=== PATIENT | male | born 1980 | race Hispanic/Latino ===

== ENCOUNTER 2018-12-14 09:31 | Inpatient (IN) | payer OTHER, MEDICARE ==
[2018-12-14] MEDS ORDERED: MORPHINE 4 MG/1 ML INJ IV ONE ×2 (09:46→10:12)
[2018-12-14] MEDS ORDERED: SODIUM CHLORIDE 0.9% 500 ML 500 ML IV ONE (09:46)
--- NOTE | 2018-12-14 09:49 | Emergency Department Report ---
ED Chest Pain HPI - General Chief Complaint: Chest Pain Stated Complaint: POSS STEMI Time Seen by Provider: 12/14/18 09:43 Source: patient, family, EMS (verbal report received from EMS.ems notes not available at time of chart dictation), RN notes reviewed, old records reviewed Mode of arrival: Stretcher Limitations: Physical Limitation - History of Present Illness Initial Comments: This is a 38-year-old gentleman. This patient is not known to this provider previously. His primary director of clinical education is , with [place] The patient is brought to the hospital by emergency medical services as a possible code STEMI. The patient presents with a complaint of burning central chest pain, diaphoresis, malaise and fatigue. He is given aspirin by EMS in the field. Nitroglycerin is held given concern for possible inferior wall STEMI. As per verbal report from EMS, patient hypotensive in the field, blood pressure in the 80s, and appeared to be quite pale. A prehospital EKG was transmitted. I reviewed the prehospital EKG, and while it was abnormal, it does not meet criteria for ST elevation myocardial infarction. It was transmitted to our cleaner greaser, Dr. Pallavi Geller, who indicated that the EKG did not meet STEMI criteria and did not recommend emergent catheterization at the time.. Additional EKGs were also transmitted to the cleaner greaser, at 9:36 in the morning, regular leads, and then right-sided leads. These EKGs were evaluated by our cleaner greaser, who indicated that the patient did not meet criteria for emergent catheterization. I agreed with his interpretation, however, was very suspicious for acute coronary syndrome. These initial EKGs did not be criteria for administration of thrombolytic medications. He recommended emergent CT scan of the chest to exclude alternative diagnoses. I requested an emergent cardiology consult given very elevated suspicion for acute coronary syndrome. Additional EKG transmitted at 10:04 AM, showing progression of concerning inferior wall infarction, however, did not meet strict criteria for thrombolysis, again, additional EKG sent at 10:13 AM, even more suspicious. CT scan of the chest was interpreted as negative for acute disease, and at 10:42 AM, patient's EKG morphology was found to be definitively consistent with ST elevation myocardial infarction, at which point in time he was emergently taken to the catheterization lab. Heparin bolus was administered by nursing team in the emergency room at my verbal direction, aspirin was given by EMS in the field. Morphine was given for pain control, and nitroglycerin was held given concern for inferior wall myocardial infarction. MD Complaint: chest pain -: Gradual, minutes(s) Onset: during rest Pain Location: left chest Quality: other (burning) Consistency: constant Improves With: rest Worsens With: nothing re: diaphoresis Treatments Prior to Arrival: aspirin Aspirin use within the Past 7 Days: (1) Yes - Related Data On Oral Contraceptives: No Home Medications Medication Instructions Recorded Confirmed Last Taken Amlodipine Besylate [Norvasc] 5 mg PO QDAY 12/14/18 12/14/18 12/13/18 Omeprazole 40 mg PO QDAY 12/14/18 12/14/18 12/13/18 Oxycodone HCl [Oxaydo] 7.5 mg PO Q6H 12/14/18 12/14/18 12/13/18 Testosterone Cypionate [Testone 200 mg IM QMONTH 12/14/18 12/14/18 11/24/18 Cik] clonazePAM [Klonopin] 1 mg PO QDAY 12/14/18 12/14/18 12/13/18 predniSONE [Deltasone] 10 mg PO QDAY 12/14/18 12/14/18 12/13/18 Allergies Allergy/AdvReac Type Severity Reaction Status Date / Time hydromorphone [From Dilaudid] Allergy Rash Verified 12/14/18 13:59 Heart Score - HEART Score History: Highly suspicious EKG: Significant ST-depression Age: < 45 Risk factors: 1-2 risk factors Troponin: < normal limit HEART Score: 5 - Critical Actions Critical Actions: 4-6 pts:12-16.6% risk of adverse cardiac event. Should be admitted ED Review of Systems ROS: Stated complaint: POSS STEMI Other details as noted in HPI Constitutional: malaise, weakness. denies: fever Eyes: denies: eye discharge ENT: denies: hearing loss Respiratory: denies: wheezing Cardiovascular: chest pain Gastrointestinal: vomiting Musculoskeletal: denies: back pain Skin: denies: lesions Neurological: weakness Psychiatric: anxiety Hematological/Lymphatic: denies: easy bleeding ED Past Medical Hx - Medications Home Medications: Home Medications Medication Instructions Recorded Confirmed Last Taken Type Amlodipine Besylate [Norvasc] 5 mg PO QDAY 12/14/18 12/14/1819 History Omeprazole 40 mg PO QDAY 12/14/18 12/14/18 12/13/18 History Oxycodone HCl [Oxaydo] 7.5 mg PO Q6H 12/14/18 12/14/18 12/13/18 History Testosterone Cypionate [Testone 200 mg IM QMONTH 12/14/18 12/14/18 11/24/18 History Cik] clonazePAM [Klonopin] 1 mg PO QDAY 12/14/18 12/14/18 12/13/18 History predniSONE [Deltasone] 10 mg PO QDAY 12/14/18 12/14/18 12/13/18 History ED Physical Exam - General Limitations: Physical Limitation General appearance: alert, anxious, in distress, obese - Head Head exam: Present: atraumatic, normocephalic - Eye Eye exam: Present: normal appearance, EOMI. Absent: nystagmus - ENT ENT exam: Present: normal exam, normal orophraynx, mucous membranes moist, normal external ear exam - Neck Neck exam: Present: normal inspection, full ROM. Absent: tenderness, meningismus - Respiratory Respiratory exam: Present: normal lung sounds bilaterally. Absent: respiratory distress - Cardiovascular Cardiovascular Exam: Present: regular rate, normal rhythm, normal heart sounds. Absent: bradycardia, tachycardia, irregular rhythm, systolic murmur, diastolic murmur, rubs, gallop - GI/Abdominal GI/Abdominal exam: Present: soft. Absent: distended, tenderness, guarding, rebound, rigid, pulsatile mass - Rectal Rectal exam: Present: deferred - Extremities Exam Extremities exam: Present: normal inspection, full ROM, other (2+ pulses noted in the bilateral upper, lower extremities. Compartments soft. No long bony tenderness. The pelvis is stable.). Absent: pedal edema, calf tenderness - Back Exam Back exam: Present: normal inspection. Absent: tenderness, CVA tenderness (R), paraspinal tenderness, vertebral tenderness - Neurological Exam Neurological exam: Present: alert, other (Extraocular movements intact. Tongue midline. No facial droop. Facial sensation intact to light touch in the V1, V2, V3 distribution bilaterally. 5 and 5 strength in 4 extremities.. Sensation is intact to light touch in 4 extremities.) - Psychiatric Psychiatric exam: Present: anxious - Skin Skin exam: Present: warm, dry, intact, normal color. Absent: rash ANGI score - Angi Score Age > 65: (0) No Aspirin use within the Past 7 Days: (0) No 3 or more CAD Risk Factors: (0) No 2 or more Angina events in past 24 hrs: (1) Yes Known CAD with more than 50% Stenosis: (0) No Elevated Cardiac Markers: (0) No ST Deviation Greater than 0.5mm: (1) Yes ANGI Score: 2 ED Medical Decision Making - Lab Data Result diagrams: 12/14/18 09:38 12/14/18 09:38 Vital Signs 12/14/18 12/14/18 12/14/18 09:35 09:42 09:45 Temperature 97.5 F L Pulse Rate 65 63 54 L Respiratory 15 14 10 L Rate Blood Pressure 126/86 136/88 O2 Sat by Pulse 99 100 100 Oximetry 12/14/18 09:50 Temperature Pulse Rate Respiratory 14 Rate Blood Pressure O2 Sat by Pulse 100 Oximetry Lab Results 12/14/18 12/14/18 12/14/18 Range/Units 09:38 09:38 09:38 WBC 10.1 (4.5-11.0) K/mm3 RBC 4.35 (3.65-5.03) M/mm3 Hgb 13.9 (11.8-15.2) gm/dl Hct 39.3 (35.5-45.6) % MCV 90 (84-94) fl MCH 32 (28-32) pg MCHC 35 H (32-34) % RDW 13.4 (13.2-15.2) % Plt Count 312 (140-440) K/mm3 Lymph % (Auto) 40.2 H (13.4-35.0) % [place] % (Auto) 11.5 H (0.0-7.3) % Eos % (Auto) 3.0 (0.0-4.3) % Baso % (Auto) 0.5 (0.0-1.8) % Lymph # 4.1 (1.2-5.4) K/mm3 [place] # 1.2 H (0.0-0.8) K/mm3 Eos # 0.3 (0.0-0.4) K/mm3 Baso # 0.1 (0.0-0.1) K/mm3 Seg Neutrophils % 44.8 (40.0-70.0) % Seg Neutrophils # 4.5 (1.8-7.7) K/mm3 PT 13.5 (12.2-14.9) Sec. INR 1.06 (0.87-1.13) APTT 25.2 (24.2-36.6) Sec. Sodium 141 (137-145) mmol/L Potassium 3.3 L (3.6-5.0) mmol/L Chloride 104.2 (98-107) mmol/L Carbon Dioxide 23 (22-30) mmol/L Anion Gap 17 mmol/L BUN 16 (9-20) mg/dL Creatinine 1.0 (0.8-1.5) mg/dL Estimated GFR > 60 ml/min BUN/Creatinine Ratio 16 % Glucose 162 H (75-100) mg/dL Calcium 8.3 L (8.4-10.2) mg/dL Magnesium 1.80 (1.7-2.3) mg/dL Total Bilirubin 0.30 (0.1-1.2) mg/dL AST 14 (5-40) units/L ALT 19 (7-56) units/L Alkaline Phosphatase 60 (35-129) units/L Total Creatine Kinase 99 (55-170) units/L Total Protein 6.0 L (6.3-8.2) g/dL Albumin 3.5 L (3.9-5) g/dL Albumin/Globulin Ratio 1.4 % Lipase 18 (13-60) units/L - EKG Data -: EKG Interpreted by De - EKG Data Interpretation: acute IA - Radiology Data Radiology results: pending, report reviewed, image reviewed X-ray the chest is negative for acute disease. CT scan of the chest is negative for acute disease. Critical Care Time: Yes Critical care time in (mins) excluding proc time.: 60 Critical care attestation.: If time is entered above; I have spent that time in minutes in the direct care of this critically ill patient, excluding procedure time. ED Disposition Clinical Impression: Acute coronary syndrome STEMI (ST elevation myocardial infarction) Qualifiers: Involved coronary artery: right coronary artery Qualified Code(s): I21.11 - ST elevation (STEMI) myocardial infarction involving right coronary artery Disposition: DC/TX-02 SHRT-TRM GEN HOSP IP Is pt being admited?: Yes Does the pt Need Aspirin: No (given in the field) Condition: Critical
[2018-12-14 09:54] LABS: Basophils # (Auto) 0.1 K/mm3 (0.0-0.1); Basophils % (Auto) 0.5 % (0.0-1.8); Eosinophils # (Auto) 0.3 K/mm3 (0.0-0.4); Hematocrit 39.3 % (35.5-45.6); Hemoglobin 13.9 gm/dl (11.8-15.2); Lymphocytes # (Auto) 4.1 K/mm3 (1.2-5.4); Lymphocytes % (Auto) 40.2 % (13.4-35.0); Mean Corpuscular HGB Conc 35 % (32-34); Mean Corpuscular Volume 90 fl (84-94); Monocytes # (Auto) 1.2 K/mm3 (0.0-0.8); Monocytes % (Auto) 11.5 % (0.0-7.3); Platelet Count 312 K/mm3 (140-440); Red Blood Count 4.35 M/mm3 (3.65-5.03); Red Cell Distribution Width 13.4 % (13.2-15.2)
[2018-12-14 10:07] LABS: INR 1.06 (0.87-1.13)
[2018-12-14 10:08] LABS: Partial Thromboplastin Time 25.2 Sec. (24.2-36.6)
--- NOTE | 2018-12-14 10:11 | XRay Report ---
CHEST 1 VIEW INDICATION: Chest Pain. COMPARISON: None FINDINGS: Support devices: None. Heart: Mild cardiomegaly Lungs/Pleura: There is poor inspiration. The lungs are grossly clear. No large infiltrate, pleural ef fusion or pneumothorax. Thoracic neurostimulator device terminates near the level of T7. Additional findings: None. IMPRESSION: Mild cardiomegaly. Lungs grossly clear. Signer Name: Aris Estrada Jr, MD Signed: 12/14/2018 10:06 AM Workstation Name: [id number]
[2018-12-14 10:12] LABS: Alanine Aminotransferase 19 units/L (7-56); Albumin 3.5 g/dL (3.9-5); BUN/Creatinine Ratio 16; Blood Urea Nitrogen 16 mg/dL (9-20); Calcium 8.3 mg/dL (8.4-10.2); Hemolysis Index 4
[2018-12-14] MEDS ORDERED: methylPREDNISolone Sod Succinate 125 MG/2 ML INJ IV ONE (10:24)
[2018-12-14] MEDS ORDERED: methylPREDNISolone Sod Succinate 125 MG/2 ML INJ ONE ×2 (10:24→11:28)
[2018-12-14] MEDS ORDERED: FAMOTIDINE 20 MG/2 ML INJ IV ONE ×2 (10:24→10:25)
[2018-12-14] MEDS ORDERED: diphenhydrAMINE 50 MG/ML VIAL IV ONE (10:24)
[2018-12-14] MEDS ORDERED: diphenhydrAMINE 50 MG/ML VIAL ONE (10:25)
[2018-12-14] MEDS ORDERED: HEPARIN 10,000 UNITS/10 ML VIAL ONE ×2 (10:48→10:52)
[2018-12-14] MEDS ORDERED: HEPARIN/NS 5000 UNIT/500ML 1,000 ML IR ONE (10:51)
[2018-12-14] MEDS ORDERED: MIDAZOLAM 2 MG/2 ML INJ ONE (10:52)
[2018-12-14] MEDS ORDERED: LIDOCAINE (2%) 20 MG/1 ML VIAL 20 ML MDV INFILTRATI ONE (10:52)
[2018-12-14] MEDS ORDERED: NITROGLYCERIN SYRINGE 3 ML ONE (10:52)
[2018-12-14] MEDS ORDERED: VERAPAMIL 5 MG/2 ML INJ ONE (10:52)
--- NOTE | 2018-12-14 10:52 | Cat Scan Report ---
CTA CHEST WITH CONTRAST INDICATION / CLINICAL INFORMATION: cp hx of hypotension. TECHNIQUE: Axial CT images were obtained through the chest after injection of 100 mL Omnipaque 350 IV contrast. 3 plane MIP and/or 3D reconstructions were produced. All CT scans at this location are performed usin g CT dose reduction for JEFRYRA by means of automated exposure control. COMPARISON: None available. FINDINGS: PULMONARY ARTERIES: No pulmonary emboli. THORACIC AORTA: No significant abnormality. HEART: Heart is mildly enlarged. No pericardial effusion. CORONARY ARTERIES: No significant calcification. MEDIASTINUM / RODERICK: No significant abnormality. PLEURA: No pleural effusion. No pneumothorax. LUNGS: Mild bibasilar atelectasis. No acute airspace disease. ADDITIONAL FINDINGS: None. UPPER ABDOMEN: No acute findings. SKELETAL STRUCTURES: No significant osseous abnormality. IMPRESSION: 1. No CT evidence for pulmonary embolism. 2. No acute findings. 3. Mild cardiomegaly. Signer Name: Kian Dwyer MD Signed: 12/14/2018 10:47 AM Workstation Name: [id number]
[2018-12-14] MEDS ORDERED: POTASSIUM CHLORIDE 10 MEQ 10 MEQ/100 ML BAG IV SCH (11:00)
[2018-12-14] MEDS: fentaNYL 100 MCG/2 ML INJ ONE ×2 (11:18→11:27)
[2018-12-14] MEDS ORDERED: HEPARIN 10,000 UNITS/10 ML VIAL IV ONE (11:18)
[2018-12-14] MEDS ORDERED: SODIUM CHLORIDE 0.9% 500 ML 500 ML ONE (11:44)
[2018-12-14] MEDS ORDERED: ONDANSETRON 4 MG/2 ML INJ IV PRN (11:49)
[2018-12-14] MEDS ORDERED: ACETAMINOPHEN 325 MG TAB PO PRN (11:49)
--- NOTE | 2018-12-14 11:49 | History and Physical Report ---
History of Present Illness Date of examination: 12/14/18 Date of admission: 12/14/18 Chief complaint: Chest pain since AM History of present illness: The patient is brought to the hospital by emergency medical services as a possible code STEMI. The patient presents with a complaint of burning central chest pain, diaphoresis, malaise and fatigue. He is given aspirin by EMS in the field. Nitroglycerin is held given concern for possible inferior wall STEMI. As per verbal report from EMS, patient hypotensive in the field, blood pressure in the 80s, and appeared to be quite pale. A prehospital EKG was transmitted. I reviewed the prehospital EKG, and while it was abnormal, it does not meet criteria for ST elevation myocardial infarction. It was transmitted to our teletype clerk, Dr. Pallavi Geller, who indicated that the EKG did not meet STEMI criteria and did not recommend emergent catheterization at the time.. Additional EKGs were also transmitted to the teletype clerk, at 9:36 in the morning, regular leads, and then right-sided leads. These EKGs were evaluated by our teletype clerk, who indicated that the patient did not meet criteria for emergent catheterization. I agreed with his interpretation, however, was very suspicious for acute coronary syndrome. These initial EKGs did not be criteria for administration of thrombolytic medications. He recommended emergent CT scan of the chest to exclude alternative diagnoses. I requested an emergent cardiology consult given very elevated suspicion for acute coronary syndrome. Additional EKG transmitted at 10:04 AM, showing progression of concerning inferior wall infarction, however, did not meet strict criteria for thrombolysis, again, additional EKG sent at 10:13 AM, even more suspicious. CT scan of the chest was interpreted as negative for acute disease, and at 10:42 AM, patient's EKG morphology was found to be definitively consistent with ST elevation myocardial infarction, at which point in time he was emergently taken to the catheterization lab. Heparin bolus was administered by nursing team in the emergency room at my verbal direction, aspirin was given by EMS in the field. Morphine was given for pain control, and nitroglycerin was held given concern for inferior wall myocardial infarction. Review of Systems ROS: Stated complaint: POSS STEMI Other details as noted in HPI Constitutional: malaise, weakness. denies: fever Eyes: denies: eye discharge ENT: denies: hearing loss Respiratory: denies: wheezing Cardiovascular: chest pain Gastrointestinal: vomiting Musculoskeletal: denies: back pain Skin: denies: lesions Neurological: weakness Psychiatric: anxiety Hematological/Lymphatic: denies: easy bleeding Past History Past Medical History: GERD, hypertension, hyperlipidemia Past Surgical History: PTCA Social history: lives with family, full code Family history: hypertension Medications and Allergies Allergies Allergy/AdvReac Type Severity Reaction Status Date / Time hydromorphone [From Dilaudid] Allergy Rash Verified 12/14/18 13:59 Home Medications Medication Instructions Recorded Confirmed Last Taken Type Amlodipine Besylate [Norvasc] 5 mg PO QDAY 12/14/18 12/14/18 12/13/18 History Omeprazole 40 mg PO QDAY 12/14/18 12/14/18 12/13/18 History Oxycodone HCl [Oxaydo] 7.5 mg PO Q6H 12/14/18 12/14/18 12/13/18 History Testosterone Cypionate [Testone 200 mg IM QMONTH 12/14/18 12/14/18 11/24/18 History Cik] clonazePAM [Klonopin] 1 mg PO QDAY 12/14/18 12/14/18 12/13/18 History predniSONE [Deltasone] 10 mg PO QDAY 12/14/18 12/14/18 12/13/18 History Active Meds: Active Medications Potassium Chloride (Kcl 10meq/100ml) 10 meq in 100 mls @ 100 mls/hr IV Q1H JULIAN Stop: 12/14/18 14:59 Review of Systems All systems: negative Exam - Constitutional Vitals: Temp Pulse Resp BP Pulse Ox 97.5 F L 87 12 135/80 100 12/14/18 09:42 12/14/18 10:46 12/14/18 10:46 12/14/18 10:46 12/14/18 10:46 General appearance: Present: no acute distress, well-nourished - EENT Eyes: Present: PERRL ENT: hearing intact, clear oral mucosa - Neck Neck: Present: supple, normal ROM - Respiratory Respiratory effort: normal Respiratory: bilateral: CTA - Cardiovascular Heart rate: 88 Rhythm: regular Heart Sounds: Present: S1 & S2. Absent: rub, click - Extremities Extremities: no ischemia, pulses intact, pulses symmetrical, No edema Peripheral Pulses: within normal limits - Abdominal General gastrointestinal: Present: soft, non-tender, non-distended, normal bowel sounds Male genitourinary: Present: normal - Rectal Rectal Exam: deferred - Integumentary Integumentary: Present: clear, warm, dry - Musculoskeletal Musculoskeletal: gait normal, strength equal bilaterally - Psychiatric Psychiatric: appropriate mood/affect, intact judgment & insight - Neurologic Neurologic: CNII-XII intact, moves all extremities - Allied Health Allied health notes reviewed: nursing, case management Results - Labs CBC & Chem 7: 12/14/18 09:38 12/14/18 09:38 Labs: Laboratory Last Values WBC 10.1 K/mm3 (4.5-11.0) 12/14/18 09:38 RBC 4.35 M/mm3 (3.65-5.03) 12/14/18 09:38 Hgb 13.9 gm/dl (11.8-15.2) 12/14/18 09:38 Hct 39.3 % (35.5-45.6) 12/14/18 09:38 MCV 90 fl (84-94) 12/14/18 09:38 MCH 32 pg (28-32) 12/14/18 09:38 MCHC 35 % (32-34) H 12/14/18 09:38 RDW 13.4 % (13.2-15.2) 12/14/18 09:38 Plt Count 312 K/mm3 (140-440) 12/14/18 09:38 Lymph % (Auto) 40.2 % (13.4-35.0) H 12/14/18 09:38 [place] % (Auto) 11.5 % (0.0-7.3) H 12/14/18 09:38 Eos % (Auto) 3.0 % (0.0-4.3) 12/14/18 09:38 Baso % (Auto) 0.5 % (0.0-1.8) 12/14/18 09:38 Lymph # 4.1 K/mm3 (1.2-5.4) 12/14/18 09:38 [place] # 1.2 K/mm3 (0.0-0.8) H 12/14/18 09:38 Eos # 0.3 K/mm3 (0.0-0.4) 12/14/18 09:38 Baso # 0.1 K/mm3 (0.0-0.1) 12/14/18 09:38 Seg Neutrophils % 44.8 % (40.0-70.0) 12/14/18 09:38 Seg Neutrophils # 4.5 K/mm3 (1.8-7.7) 12/14/18 09:38 PT 13.5 Sec. (12.2-14.9) 12/14/18 09:38 INR 1.06 (0.87-1.13) 12/14/18 09:38 APTT 25.2 Sec. (24.2-36.6) 12/14/18 09:38 Sodium 141 mmol/L (137-145) 12/14/18 09:38 Potassium 3.3 mmol/L (3.6-5.0) L 12/14/18 09:38 Chloride 104.2 mmol/L (98-107) 12/14/18 09:38 Carbon Dioxide 23 mmol/L (22-30) 12/14/18 09:38 Anion Gap 17 mmol/L 12/14/18 09:38 BUN 16 mg/dL (9-20) 12/14/18 09:38 Creatinine 1.0 mg/dL (0.8-1.5) 12/14/18 09:38 Estimated GFR > 60 ml/min 12/14/18 09:38 BUN/Creatinine Ratio 16 % 12/14/18 09:38 Glucose 162 mg/dL (75-100) H 12/14/18 09:38 Calcium 8.3 mg/dL (8.4-10.2) L 12/14/18 09:38 Magnesium 1.80 mg/dL (1.7-2.3) 12/14/18 09:38 Total Bilirubin 0.30 mg/dL (0.1-1.2) 12/14/18 09:38 AST 14 units/L (5-40) 12/14/18 09:38 ALT 19 units/L (7-56) 12/14/18 09:38 Alkaline Phosphatase 60 units/L (35-129) 12/14/18 09:38 Total Creatine Kinase 99 units/L (55-170) 12/14/18 09:38 Total Protein 6.0 g/dL (6.3-8.2) L 12/14/18 09:38 Albumin 3.5 g/dL (3.9-5) L 12/14/18 09:38 Albumin/Globulin Ratio 1.4 % 12/14/18 09:38 Lipase 18 units/L (13-60) 12/14/18 09:38 - Imaging and Cardiology EKG: report reviewed (ST elevation in L 3 and SVF c/w STEMI) Chest x-ray: report reviewed Assessment and Plan Assessment and plan: CCT 34 mins Advance Directives: Yes (Full code) VTE prophylaxis?: Chemical Plan of care discussed with patient/family: Yes - Patient Problems (1) STEMI (ST elevation myocardial infarction) Status: Acute Qualifiers: Involved coronary artery: right coronary artery Qualified Code(s): I21.11 - ST elevation (STEMI) myocardial infarction involving right coronary artery Plan to address problem: EKG c/w STEMI Patient being taken to cath lab nurse for pci (2) HTN (hypertension) Status: Chronic Qualifiers: Hypertension type: essential hypertension Qualified Code(s): I10 - Essential (primary) hypertension Plan to address problem: Cont antihypertensives (3) Hypokalemia Status: Acute Plan to address problem: supplemented (4) DVT prophylaxis Status: Acute Plan to address problem: Will be on Heparin drip and GI prophylaxis
[2018-12-14] MEDS ORDERED: HYDROmorphone 1 MG/1 ML INJ IV PRN (11:51)
[2018-12-14] MEDS ORDERED: oxyCODONE /ACETAMINOPHEN 5-325MG TAB PO PRN (11:51)
[2018-12-14] MEDS ORDERED: ZOLPIDEM 5 MG TAB PO PRN (11:51)
[2018-12-14] MEDS ORDERED: NON-FORMULARY EACH (Clonazepam [Klonopin] 1 MG) PO SCH (12:00)
[2018-12-14] MEDS ORDERED: SODIUM CHLORIDE 0.9% 1000 ML 1,000 ML IV SCH (12:00)
[2018-12-14] MEDS ORDERED: NON-FORMULARY EACH (Omeprazole [Omeprazole] 40 MG) PO SCH (12:00)
[2018-12-14] MEDS ORDERED: FAMOTIDINE 20 MG TAB PO SCH (12:00)
[2018-12-14] MEDS ORDERED: HEPARIN/NS 5000 UNIT/500ML 500 ML IR ONE (12:08)
[2018-12-14] MEDS ORDERED: NITROGLYCERIN DRIP 50 MG/250 ML BOTTLE ONE (12:51)
[2018-12-14] MEDS ORDERED: HEPARIN/ 0.45% NACL DRIP 25,000 UNIT/500 ML BAG ONE (12:52)
--- NOTE | 2018-12-14 13:07 | Event Note ---
Date: 12/14/18 Cardiac cath completed, showed a complete occlusion of the RCA in its distal segment. PTCA was NOT successful due to poor guide support for anomalous RCA origin. Procedure aborted. Patient is CP free, hemodynamically stable for transfer to [facility].
[2018-12-14] MEDS ORDERED: fentaNYL 100 MCG/2 ML INJ IV ONE (13:45)
[2018-12-14] MEDS ORDERED: amLODIPine 5 MG TAB PO SCH (14:00)
[2018-12-14] MEDS ORDERED: predniSONE 10 MG TAB PO SCH (14:00)
[2018-12-14] MEDS ORDERED: PANTOPRAZOLE 40 MG TAB PO SCH (14:00)
[2018-12-14] MEDS ORDERED: clonazePAM 0.5 MG TAB PO SCH (14:00)
[2018-12-14] MEDS ORDERED: ONDANSETRON 4 MG/2 ML INJ ONE (14:44)
[2018-12-14 15:00] VITALS: BP 107/51
--- NOTE | 2018-12-14 15:29 | Cardiac Catherization Report ---
CARDIAC CATHETERIZATION AND CORONARY ANGIOPLASTY REPORT REASON FOR PROCEDURE: Acute coronary syndrome. The patient is a 38-year-old man who presented to the hospital with chest pain. Serial EKGs done in the Emergency Room were equivocal, not consistent with acute ST-elevation infarct. There was also no ST-depression indicative of acute ischemia. He was taken to the CT scan to rule out a pulmonary embolism or aortic dissection, both of which were negative. Due to continued chest pain, he was recommended for immediate cardiac catheterization. PROCEDURES: 1. Left heart catheterization. 2. Selective left and right coronary angiography. 3. Left ventricle angiography. 4. Sedation time, start 11:18 and end 12:30. 5. Unsuccessful angioplasty of the right coronary artery. DESCRIPTION OF PROCEDURE: The patient was prepped and draped in a sterile fashion under emergency protocol. Right femoral artery was entered using Seldinger technique followed by placement of a 6-English sheath. We performed left coronary angiography using a #4 left Lexi catheter. We then advanced a right coronary guiding catheter, but were unable to access the right coronary ostium. The right coronary guide catheter was then used for left ventricle angiography. 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 Due to its anomalous origin, there was extreme difficulty with cannulating this vessel. Multiple guiding catheters were used including a multipurpose catheter, a right Amplatz #2, a left Amplatz #1, and an EBU 3.5. The multipurpose and the EBU were successful in temporary cannulation to provide a limited angiography. Angiography revealed the vessel to be occluded in its distal segment. There was faint collateralization of the small distal vessel from the left coronary system. Multiple attempts at guidewire placement were unsuccessful due to poor guide support. Ultimately, the procedure was aborted after we exhausted 300 mL of contrast. LEFT CORONARY ANGIOGRAPHY: The left coronary arteries revealed a normal left main, normal left anterior descending artery and its branches, normal large ramus intermedius artery, and normal circumflex. No significant lesions were noted in the left coronary system. After multiple attempts at right coronary cannulation were unsuccessful, the procedure was aborted. We removed the catheters and the sheath and the arteriotomy was closed using an Angio-Seal device. The patient at the conclusion of the procedure was hemodynamically stable, chest pain free, and no complications were recorded. CONCLUSION: 1. Acute coronary syndrome. 2. Occluded distal right coronary artery. 3. 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 4. Left coronary system is without significant lesions. 5. Normal left ventricular systolic function. RECOMMENDATIONS: The patient will be placed on aggressive medical management, and be considered for a reassessment of interventional options at a tertiary care center. [facility]# [id number] DIPIKA/NTS
--- NOTE | 2018-12-16 16:30 | Discharge Summary ---
Providers - Providers Date of Admission: 12/14/18 11:49 Date of discharge: 12/14/18 Attending physician: ERNIE TABOR 12/14/18 09:45 Consult to Cardiology [CONS] Stat Consulting Provider: JALIL BE Reason For Exam: cp Consult to Physician [CONS] Urgent Comment: Consulting Provider: JALIL BE Physician Instructions: Reason For Exam: cp abnormal ekg 12/14/18 13:08 Consult to Cardiac Rehabilitation [CONS] Routine Reason For Exam: Cardiac Rehab Evaluation Primary care physician: JASS CRUZ Hospitalization Condition: Critical Hospital course: The patient is brought to the hospital by emergency medical services as a possible code STEMI. The patient presents with a complaint of burning central chest pain, diaphoresis, malaise and fatigue. He is given aspirin by EMS in the field. Nitroglycerin is held given concern for possible inferior wall STEMI. As per verbal report from EMS, patient hypotensive in the field, blood pressure in the 80s, and appeared to be quite pale. A prehospital EKG was transmitted. I reviewed the prehospital EKG, and while it was abnormal, it does not meet criteria for ST elevation myocardial infarction. It was transmitted to our worm grower, Dr. Pallavi Be, who indicated that the EKG did not meet STEMI criteria and did not recommend emergent catheterization at the time.. Additional EKGs were also transmitted to the worm grower, at 9:36 in the morning, regular leads, and then right-sided leads. These EKGs were evaluated by our worm grower, who indicated that the patient did not meet criteria for emergent catheterization. I agreed with his interpretation, however, was very suspicious for acute coronary syndrome. These initial EKGs did not be criteria for administration of thrombolytic medications. He recommended emergent CT scan of the chest to exclude alternative diagnoses. I requested an emergent cardiology consult given very elevated suspicion for acute coronary syndrome. Additional EKG transmitted at 10:04 AM, showing progression of concerning inferior wall infarction, however, did not meet strict criteria for thrombolysis, again, additional EKG sent at 10:13 AM, even more suspicious. CT scan of the chest was interpreted as negative for acute disease, and at 10:42 AM, patient's EKG morphology was found to be definitively consistent with ST elevation myocardial infarction, at which point in time he was emergently taken to the catheterization lab. Heparin bolus was administered by nursing team in the emergency room at my verbal direction, aspirin was given by EMS in the field. Morphine was given for pain control, and nitroglycerin was held given concern for inferior wall myocardial infarction. Past History Past Medical History: GERD, hypertension, hyperlipidemia Past Surgical History: PTCA Social history: lives with family, full code Family history: hypertension Medications and Allergies Allergies Allergy/AdvReac Type Severity Reaction Status Date / Time hydromorphone [From Dilaudid] Allergy Rash Verified 12/14/18 13:59 Home Medications Medication Instructions Recorded Confirmed Last Taken Type Amlodipine Besylate [Norvasc] 5 mg PO QDAY 12/14/18 12/14/18 12/13/18 History Omeprazole 40 mg PO QDAY 12/14/18 12/14/18 12/13/18 History Oxycodone HCl [Oxaydo] 7.5 mg PO Q6H 12/14/18 12/14/18 12/13/18 History Testosterone Cypionate [Testone 200 mg IM QMONTH 12/14/18 12/14/18 11/24/18 History Cik] clonazePAM [Klonopin] 1 mg PO QDAY 12/14/18 12/14/18 12/13/18 History predniSONE [Deltasone] 10 mg PO QDAY 12/14/18 12/14/18 12/13/18 History Active Meds: Active Medications Potassium Chloride (Kcl 10meq/100ml) 10 meq in 100 mls @ 100 mls/hr IV Q1H JULIAN Stop: 12/14/18 14:59 Review of Systems All systems: negative Exam - Constitutional Vitals: Temp Pulse Resp BP Pulse Ox 97.5 F L 87 12 135/80 100 12/14/18 09:42 12/14/18 10:46 12/14/18 10:46 12/14/18 10:46 12/14/18 10:46 General appearance: Present: no acute distress, well-nourished - EENT Eyes: Present: PERRL ENT: hearing intact, clear oral mucosa - Neck Neck: Present: supple, normal ROM - Respiratory Respiratory effort: normal Respiratory: bilateral: CTA - Cardiovascular Heart rate: 88 Rhythm: regular Heart Sounds: Present: S1 & S2. Absent: rub, click - Extremities Extremities: no ischemia, pulses intact, pulses symmetrical, No edema Peripheral Pulses: within normal limits - Abdominal General gastrointestinal: Present: soft, non-tender, non-distended, normal bowel sounds Male genitourinary: Present: normal - Rectal Rectal Exam: deferred - Integumentary Integumentary: Present: clear, warm, dry - Musculoskeletal Musculoskeletal: gait normal, strength equal bilaterally - Psychiatric Psychiatric: appropriate mood/affect, intact judgment & insight - Neurologic Neurologic: CNII-XII intact, moves all extremities - Allied Health Allied health notes reviewed: nursing, case management Results - Labs CBC & Chem 7: 12/14/18 09:38 12/14/18 09:38 Labs: Laboratory Last Values WBC 10.1 K/mm3 (4.5-11.0) 12/14/18 09:38 RBC 4.35 M/mm3 (3.65-5.03) 12/14/18 09:38 Hgb 13.9 gm/dl (11.8-15.2) 12/14/18 09:38 Hct 39.3 % (35.5-45.6) 12/14/18 09:38 MCV 90 fl (84-94) 12/14/18 09:38 MCH 32 pg (28-32) 12/14/18 09:38 MCHC 35 % (32-34) H 12/14/18 09:38 RDW 13.4 % (13.2-15.2) 12/14/18 09:38 Plt Count 312 K/mm3 (140-440) 12/14/18 09:38 Lymph % (Auto) 40.2 % (13.4-35.0) H 12/14/18 09:38 Gibson % (Auto) 11.5 % (0.0-7.3) H 12/14/18 09:38 Eos % (Auto) 3.0 % (0.0-4.3) 12/14/18 09:38 Baso % (Auto) 0.5 % (0.0-1.8) 12/14/18 09:38 Lymph # 4.1 K/mm3 (1.2-5.4) 12/14/18 09:38 Gibson # 1.2 K/mm3 (0.0-0.8) H 12/14/18 09:38 Eos # 0.3 K/mm3 (0.0-0.4) 12/14/18 09:38 Baso # 0.1 K/mm3 (0.0-0.1) 12/14/18 09:38 Seg Neutrophils % 44.8 % (40.0-70.0) 12/14/18 09:38 Seg Neutrophils # 4.5 K/mm3 (1.8-7.7) 12/14/18 09:38 PT 13.5 Sec. (12.2-14.9) 12/14/18 09:38 INR 1.06 (0.87-1.13) 12/14/18 09:38 APTT 25.2 Sec. (24.2-36.6) 12/14/18 09:38 Sodium 141 mmol/L (137-145) 12/14/18 09:38 Potassium 3.3 mmol/L (3.6-5.0) L 12/14/18 09:38 Chloride 104.2 mmol/L (98-107) 12/14/18 09:38 Carbon Dioxide 23 mmol/L (22-30) 12/14/18 09:38 Anion Gap 17 mmol/L 12/14/18 09:38 BUN 16 mg/dL (9-20) 12/14/18 09:38 Creatinine 1.0 mg/dL (0.8-1.5) 12/14/18 09:38 Estimated GFR > 60 ml/min 12/14/18 09:38 BUN/Creatinine Ratio 16 % 12/14/18 09:38 Glucose 162 mg/dL (75-100) H 12/14/18 09:38 Calcium 8.3 mg/dL (8.4-10.2) L 12/14/18 09:38 Magnesium 1.80 mg/dL (1.7-2.3) 12/14/18 09:38 Total Bilirubin 0.30 mg/dL (0.1-1.2) 12/14/18 09:38 AST 14 units/L (5-40) 12/14/18 09:38 ALT 19 units/L (7-56) 12/14/18 09:38 Alkaline Phosphatase 60 units/L (35-129) 12/14/18 09:38 Total Creatine Kinase 99 units/L (55-170) 12/14/18 09:38 Total Protein 6.0 g/dL (6.3-8.2) L 12/14/18 09:38 Albumin 3.5 g/dL (3.9-5) L 12/14/18 09:38 Albumin/Globulin Ratio 1.4 % 12/14/18 09:38 Lipase 18 units/L (13-60) 12/14/18 09:38 - Imaging and Cardiology EKG: report reviewed (ST elevation in L 3 and SVF c/w STEMI) Chest x-ray: report reviewed Assessment and Plan Assessment and plan: CCT 34 mins Advance Directives: Yes (Full code) VTE prophylaxis?: Chemical Plan of care discussed with patient/family: Yes - Patient Problems (1) STEMI (ST elevation myocardial infarction) Status: Acute Qualifiers: Involved coronary artery: right coronary artery Qualified Code(s): I21.11 - ST elevation (STEMI) myocardial infarction involving right coronary artery Plan to address problem: EKG c/w STEMI 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 (2) HTN (hypertension) Status: Chronic Qualifiers: Hypertension type: essential hypertension Qualified Code(s): I10 - Essential (primary) hypertension Plan to address problem: Cont antihypertensives (3) Hypokalemia Status: Acute Plan to address problem: supplemented Disposition: [id number] TO HOME OR SELFCARE - Discharge Diagnoses (1) STEMI (ST elevation myocardial infarction) Status: Acute Qualifiers: Involved coronary artery: right coronary artery Qualified Code(s): I21.11 - ST elevation (STEMI) myocardial infarction involving right coronary artery (2) HTN (hypertension) Status: Chronic Qualifiers: Hypertension type: essential hypertension Qualified Code(s): I10 - Essential (primary) hypertension (3) Hypokalemia Status: Acute (4) DVT prophylaxis Status: Acute Core Measure Documentation - Palliative Care Palliative Care/ Comfort Measures: Not Applicable - Core Measures Any of the following diagnoses?: acute [place] - Acute [place] Discharge Requirements Aspirin at discharge: Yes Reason for no aspirin on DC: Medical contraindication WILD/ARB for LVSD if EF <40%: Yes Beta joao at discharge: Yes Statin for LDL = or >100 mg/dl on DC: Yes Exam - Constitutional Vitals: Temp Pulse Resp BP Pulse Ox 97.7 F 79 16 107/51 100 12/14/18 13:23 12/14/18 14:45 12/14/18 14:45 12/14/18 14:45 12/14/18 14:45 General appearance: Present: no acute distress, well-nourished - EENT Eyes: Present: PERRL ENT: hearing intact, clear oral mucosa - Neck Neck: Present: supple, normal ROM - Respiratory Respiratory effort: normal Respiratory: bilateral: CTA - Cardiovascular Heart Sounds: Present: S1 & S2. Absent: rub, click - Extremities Extremities: pulses symmetrical, No edema Peripheral Pulses: within normal limits - Abdominal General gastrointestinal: Present: soft, non-tender, non-distended, normal bowel sounds Male genitourinary: Present: normal - Integumentary Integumentary: Present: clear, warm, dry - Musculoskeletal Musculoskeletal: gait normal, strength equal bilaterally - Psychiatric Psychiatric: appropriate mood/affect, intact judgment & insight - Neurologic Neurologic: CNII-XII intact, moves all extremities Plan Activity: no restrictions Weight Bearing Status: Weight Bear as Tolerated Diet: low fat, low cholesterol, low salt Follow up with: JASS CRUZ MD [Primary Care Provider] - 7 Days
== END 2018-12-14 15:00 | DRG 282 ==
LOC: ED 09:31 → CATH 09:31 → EDSTATUS 11:17 → OBSVTOIN 11:49 → CC1 11:49
PROVIDERS: ADMIT Internal Medicine; ATTEND Internal Medicine
PROC: 4A023N7 Measurement of Cardiac Sampling and Pressure, Left Heart, Percutaneous Approach (ICD-10-PCS; principal; 2018-12-14)
PROC: B2111ZZ Fluoroscopy of Multiple Coronary Arteries using Low Osmolar Contrast (ICD-10-PCS; 2018-12-14)
PROC: B2151ZZ Fluoroscopy of Left Heart using Low Osmolar Contrast (ICD-10-PCS; 2018-12-14)
PROC: 02JA3ZZ Inspection of Heart, Percutaneous Approach (ICD-10-PCS; 2018-12-14)
DX: I21.19 ST elevation (STEMI) myocardial infarction involving other coronary artery of inferior wall (principal); I24.9 Acute ischemic heart disease, unspecified; K21.9 Gastro-esophageal reflux disease without esophagitis; I10 Essential (primary) hypertension; E87.6 Hypokalemia; F41.9 Anxiety disorder, unspecified; Z82.49 Family history of ischemic heart disease and other diseases of the circulatory system; Z88.5 Allergy status to narcotic agent; Z79.899 Other long term (current) drug therapy
CPT/HCPCS: 36415; 71045; 71275; 80053; 82550; 82962; 83690; 83735; 84484; 85025; 85347; 85610; 85730; 92920; 93005; 93010; 93458; 96365; 96368; 96375; 96376; G0378; C1760; C1769; C1887; C1894; J1200; J1644; J2250; J2270; J2405; J2930; J3010; J7040; Q9967